=== PATIENT | male | born 1990 | race African-American/Black ===

== ENCOUNTER 2018-11-07 14:03 | Emergency (ER) | payer SELFPAY ==
[~2018-11-07] VITALS: Ht 190.5 cm; Wt 127.0 kg
[2018-11-07] MEDS ORDERED: IBUPROFEN 600 MG TABLET. PO ONE (14:30)
[2018-11-07] MEDS ORDERED: LIDOCAINE WITH 8.4% SOD BICARB 3 ML DISP.SYRIN. INJ ONE (14:30)
[2018-11-07 14:31] VITALS: BP 122/74
[2018-11-07] MEDS ORDERED: HYDR-3164 PO (14:51)
--- NOTE | 2018-11-07 14:51 | PHYS DOC ---
Past Medical History Past Medical History: No Pertinent History Past Surgical History: No Surgical History Alcohol Use: Occasionally Drug Use: None Adult General Chief Complaint Chief Complaint: LACERATION/AVULSION HPI HPI Patient is a 28 year old male who presents with left outer palm laceration that is for smears leave. Patient was clearly reviewed with a knife 1400 with incident happened. Review of Systems Review of Systems Constitutional: Denies fever or chills [] Eyes: Denies change in visual acuity, redness, or eye pain [] HENT: Denies nasal congestion or sore throat [] Respiratory: Denies cough or shortness of breath [] Cardiovascular: No additional information not addressed in HPI [] GI: Denies abdominal pain, nausea, vomiting, bloody stools or diarrhea [] : Denies dysuria or hematuria [] Musculoskeletal: Denies back pain or joint pain [] Integument: Denies rash or skin lesions [] Neurologic: Denies headache, focal weakness or sensory changes [] Endocrine: Denies polyuria or polydipsia [] All other systems were reviewed and found to be within normal limits, except as documented in this note. Current Medications Current Medications Current Medications Medications (Trade) Dose Ordered Sig/Shree Start Time Stop Time Status Last Admin Dose Admin Ibuprofen (Motrin) 600 mg 1X ONCE 11/07/18 14:30 11/07/18 14:31 DC 11/07/18 14:57 600 MG Lidocaine/Sodium Bicarbonate (Buffered Lidocaine 1%) 9 ml 1X ONCE 11/07/18 14:30 11/07/18 14:31 DC 11/07/18 14:57 9 ML Allergies Allergies Allergies Coded Allergies Type Severity Reaction Last Updated Verified No Known Drug Allergies 10/13/14 No Physical Exam Physical Exam Constitutional: Well developed, well nourished, no acute distress, non-toxic appearance. [] HENT: Normocephalic, atraumatic, bilateral external ears normal, oropharynx moist, no oral exudates, nose normal. [] Eyes: PERRLA, EOMI, conjunctiva normal, no discharge. [] Neck: Normal range of motion, no tenderness, supple, no stridor. [] Cardiovascular:Heart rate regular rhythm, no murmur [] Lungs & Thorax: Bilateral breath sounds clear to auscultation [] Abdomen: Bowel sounds normal, soft, no tenderness, no masses, no pulsatile masses. [] Skin: Warm, dry, no erythema, no rash. [] Back: No tenderness, no CVA tenderness. [] Extremities: No tenderness, no cyanosis, no clubbing, ROM intact, no edema. [] Neurologic: Alert and oriented X 3, normal motor function, normal sensory function, no focal deficits noted. [] Psychologic: Affect normal, judgement normal, mood normal. [] Current Patient Data Vital Signs Vital Signs Date Time Temp Pulse Resp B/P (MAP) Pulse Ox O2 Delivery O2 Flow Rate FiO2 11/07/18 14:31 98.6 82 16 122/74 (90) 98 Room Air 98.6 EKG EKG [] Radiology/Procedures Radiology/Procedures Left hand Impressions: [facility] [address] [place] [address] IMAGING REPORT Signed PATIENT: RADHA TITUS ACCOUNT: [id number] : 1990 LOCATION: ER AGE: 28 SEX: M EXAM STATUS: REG ER ORD. PHYSICIAN: MICKIE JAVED APRN REASON: LACERATION BY KNIFE PROCEDURE: HAND LEFT 3V Left hand radiograph 11/07/2018 11/07/2018 2:29 PM INDICATION: Laceration by knife to the medial left hand. COMPARISON: None available. TECHNIQUE: 3 views the left hand are provided. FINDINGS: There is no acute fracture or dislocation. Bone mineralization is within normal limits. Joint spaces are maintained. Soft tissue laceration is identified without radiopaque foreign density. There is no soft tissue gas or osseous erosion. IMPRESSION: No acute fracture or dislocation. Soft tissue laceration along the ulnar surface without radiopaque foreign density. Electronically signed by: Ken Braxton MD (11/07/2018 3:17 PM) [facility] DICTATED and SIGNED BY: KEN BRAXTON MD DATE: 11/07/18 1516 Course & Med Decision Making Course & Med Decision Making Patient is a 28 year old male who presents with left outer palm laceration that is for smears leave. Patient was clearly reviewed with a knife 1400 with incident happened. He states his last tetanus shot was in 2014. Patient has full strength and range of motion due to his significant. Radial pulses strong and present. Cap refill is less than 3 seconds. Alert and oriented. No foreign body seen with copious irrigation. Hand xray shows no acute findings. Patient return to the ED in 7 days for suture removal and sooner if any signs of infection. Patient ibuprofen or Tylenol for pain. Patient needs to keep the wound clean and dry and covered. Laceration Repair by me: Anesthesia: 1% lidocaine locally Location: Outer palm Tendon/Joint/Nerves: No injury Foreign body: None detected after copious irrigation and exploration Technique: 6 Simple Interrupted Sutures Complexity: No subcutaneous sutures/mucosal repair/edge excision Post Closure Length: 4 cm Patient's bleeding was easily controlled in the department and there is no indication of anemia. No evidence of compartment syndrome, neurologic injury, vascular injury, open joint, tendon laceration, or foreign body. Patient is appropriate for outpatient follow up. 48 hour wound check. Scar minimization instructions given. Dragon Disclaimer Dragon Disclaimer This electronic medical record was generated, in whole or in part, using a voice recognition dictation system. Departure Departure Impression: Primary Impression: Laceration Disposition: HOME, SELF-CARE Condition: STABLE Referrals: NO PCP (PCP) Patient Instructions: Laceration Care, Adult Additional Instructions: Return in 7 days for suture removal or sooner for any signs of infection. Take Tylenol or ibuprofen for pain. Scripts Hydrocodone/Apap 5-325 (NORCO 5-325 TABLET) 1 Each Tablet 1 TAB PO PRN Q6HRS PRN for PAIN, #5 TAB 0 Refills Prov: MICKIE JAVED APRN 11/07/18 Attending Signature Attending Signature I have reviewed the PA/MENTAL HEALTH PROFESSIONAL's note and plan of care. I was available for consultation as needed during the patient's visit in the emergency department. I agree with the clinical impression, plan, and disposition. MICKIE JAVED APRN Nov 07, 2018 14:51 MICHELET VITAL DO Nov 08, 2018 09:51
--- NOTE | 2018-11-07 15:21 | RAD ---
Left hand radiograph 11/07/2018 11/07/2018 2:29 PM INDICATION: Laceration by knife to the medial left hand. COMPARISON: None available. TECHNIQUE: 3 views the left hand are provided. FINDINGS: There is no acute fracture or dislocation. Bone mineralization is within normal limits. Joint spaces are maintained. Soft tissue laceration is identified without radiopaque foreign density. There is no soft tissue gas or osseous erosion. IMPRESSION: No acute fracture or dislocation. Soft tissue laceration along the ulnar surface without radiopaque foreign density. Electronically signed by: Laura Mustafa MD (11/07/2018 3:17 PM) [facility]
== END 2018-11-07 16:09 | disposition home or self-care (01) ==
LOC: ER 14:03
DX: S61.412A Laceration without foreign body of left hand, initial encounter (principal); W26.0XXA Contact with knife, initial encounter; Y93.89 Activity, other specified; Y92.89 Other specified places as the place of occurrence of the external cause; Y99.8 Other external cause status
CPT/HCPCS: 12002; 73130; 99283

== ENCOUNTER 2018-11-25 12:07 | Emergency (ER) | payer SELFPAY ==
[~2018-11-25] VITALS: Ht 190.5 cm; Wt 127.0 kg
[~2018-11-25 12:07] MED LIST: HYDR-3164 PO
[2018-11-25 12:30] VITALS: BP 133/83
[2018-11-25] MEDS ORDERED: predniSONE 10 MG TABLET PO ONE (13:15)
[2018-11-25] MEDS ORDERED: VALA10005 PO (13:19)
[2018-11-25] MEDS ORDERED: PRED50TA PO (13:19)
--- NOTE | 2018-11-25 13:19 | PHYS DOC ---
Past Medical History Past Medical History: No Pertinent History Past Surgical History: No Surgical History Alcohol Use: Occasionally Drug Use: None Adult General Chief Complaint Chief Complaint: SKIN RASH/ABSCESS HPI HPI 28 y/o male presents to ER for c/o rash and burning sensation on rt side lower back extending to rt side hip. Pt reports a few days ago he started having some tingling in rt lower back and then gradually pain increased- he noticed rash and pain has increased since at rash site. Pt denies injury/recent falls. Pt denies fever/chills or fatigue. Pt denies urinary sxs. Pt reports he has had increased stress w/personal things- denies depression/SI. Pt reports he has taken tylenol/ibuprofen with no relief in sxs. Pt denies previous rash similar to current one. He denies recent travel, new lotions/soaps, or others he's been around with rash. Pt reports he had chicken pox as a child. Review of Systems Review of Systems Constitutional: Denies fever or chills. Denies fatigue/weakness Eyes: Denies change in visual acuity, redness, or eye pain [] HENT: Denies nasal congestion or sore throat [] Respiratory: Denies cough or shortness of breath [] Cardiovascular: No additional information not addressed in HPI [] GI: Denies abdominal pain, nausea, vomiting, bloody stools or diarrhea [] : Denies dysuria or hematuria [] Musculoskeletal: Denies joint pain. Reports mid lower rt side back pain into rt hip area along present rash. Denies swelling or numbness/tingling Integument: Reports rash mid lower rt side back to rt hip- no other areas of rash. Denies abscess/lesions/drainage Neurologic: Denies headache, focal weakness or sensory changes [] All other systems were reviewed and found to be within normal limits, except as documented in this note. Current Medications Current Medications Current Medications Medications (Trade) Dose Ordered Sig/Shree Start Time Stop Time Status Last Admin Dose Admin Prednisone (Prednisone) 50 mg 1X ONCE 11/25/18 13:15 11/25/18 13:16 DC 11/25/18 13:23 50 MG Allergies Allergies Allergies Coded Allergies Type Severity Reaction Last Updated Verified No Known Drug Allergies 10/13/14 No Physical Exam Physical Exam Constitutional: Well developed, well nourished, no acute distress, non-toxic appearance. Steady gait HENT: Normocephalic, atraumatic, oropharynx moist, no oral exudates or pharyngeal swelling/erythema, nose normal. No facial swelling/rash Eyes: Pupils equal, conjunctiva normal, no discharge. [] Neck: Normal range of motion, no tenderness, supple, no stridor/gross adenopathy Cardiovascular: Heart rate regular rhythm, no murmur [] Lungs & Thorax: Bilateral breath sounds clear to auscultation. Resp. equal/ nonlabored Abdomen: Soft, no tenderness, no rash Skin: Warm, dry Back: Full ROM, no CVA tenderness. Rash lower mid back lateral rt side of spine extending in linear pattern to rt lateral hip- erythema patchy raised rash with few small blisters along rash track- no drainage- no puncture or sting sites- no abscess. Rash tender to touch. No other areas of rash on exam Extremities: No tenderness, no cyanosis, no clubbing, ROM intact, no edema. [] Neurologic: Alert and oriented X 3, normal motor function, normal sensory function, no focal deficits noted. [] Psychologic: Affect normal, judgement normal, mood normal. [] Current Patient Data Vital Signs Vital Signs Date Time Temp Pulse Resp B/P (MAP) Pulse Ox O2 Delivery O2 Flow Rate FiO2 11/25/18 12:30 98.4 70 16 133/83 (100) 100 Room Air 98.4 EKG EKG [] Radiology/Procedures Radiology/Procedures [] Course & Med Decision Making Course & Med Decision Making Pt was evaluated in the ER for c/o rash/burning sensation to rt side lower back into rt hip area- discussed with unilateral pattern of rash and burning type sensation at rash site along with recent increased stressors in life discussed shingles as probable cause- with education on shingles. Pt had concerns of insect bite- there was no site of puncture or obvious sting/bite where rash was located. Discussed tx plan with steroids and Valtrex- pt is agreeable with this plan. Will provide pt with community clinic/physician referral info for f/u purposes. Discussed OTC tylenol and/or ibuprofen PRN. Pt was provided with dose of Prednisone while in the ER. Education was provided on s&s to return to ER for and discharge instructions were discussed. Dragon Disclaimer Dragon Disclaimer This electronic medical record was generated, in whole or in part, using a voice recognition dictation system. Departure Departure Impression: Primary Impression: Shingles Disposition: HOME, SELF-CARE Condition: STABLE Referrals: NO PCP (PCP) Patient Instructions: Shingles Additional Instructions: You are being treated for probable shingles- take prescriptions as prescribed. Follow-up with primary doctor for re-evaluation and further care as needed. Tylenol and/or Ibuprofen as directed on container for pain as directed on container. Scripts Valacyclovir Hcl (VALTREX) 1,000 Mg Tablet 1 TAB PO TID, #21 TAB 0 Refills Prov: SERGIO ROBERTSON APRN 11/25/18 Prednisone (PREDNISONE) 50 Mg Tablet 1 TAB PO DAILY, #5 TAB 0 Refills Start 11/26/18 Prov: SERGIO ROBERTSON APRN 11/25/18 SERGIO ROBERTSON APRN Nov 25, 2018 13:19
== END 2018-11-25 13:26 | disposition home or self-care (01) ==
LOC: ER 12:07
DX: B02.9 Zoster without complications (principal); R20.2 Paresthesia of skin
CPT/HCPCS: 99283; J7512

== ENCOUNTER 2018-12-17 23:44 | Emergency (ER) | payer SELFPAY ==
[~2018-12-17] VITALS: Ht 190.5 cm; Wt 113.4 kg
[~2018-12-17 23:44] MED LIST changes: +PRED50TA PO; +VALA10005 PO
[2018-12-17 23:58] VITALS: BP 160/101
[2018-12-18] MEDS ORDERED: DICL50TA4 PO (00:08)
[2018-12-18] MEDS ORDERED: AMOX500C PO (00:08)
[2018-12-18] MEDS ORDERED: HYDR-3164 PO (00:08)
--- NOTE | 2018-12-18 00:08 | PHYS DOC ---
Past Medical History Past Medical History: No Pertinent History Past Surgical History: No Surgical History Alcohol Use: Occasionally Drug Use: None Adult General Chief Complaint Chief Complaint: DENTAL PROBLEM HPI HPI Patient is a 28 year old male with no significant medical history who presents to the ED today complaining of mild to moderate throbbing and intermittent left upper gum dental pain that has been going on for days and got worse yesterday. She denies any fever or trismus. He states he has been taking ibuprofen with slight relief for 1-1/2 hours then the pain returns. He states he plans to follow-up with the dentist. Review of Systems Review of Systems Constitutional: Denies fever or chills [] HENT: Reports left upper gum dental pain. Musculoskeletal: Denies back pain or joint pain [] Integument: Denies rash or skin lesions [] Neurologic: Denies headache, focal weakness or sensory changes [] All other systems were reviewed and found to be within normal limits, except as documented in this note. Allergies Allergies Allergies Coded Allergies Type Severity Reaction Last Updated Verified No Known Drug Allergies 10/13/14 No Physical Exam Physical Exam Constitutional: Well developed, well nourished, no acute distress, non-toxic appearance. [] HENT: Normocephalic, atraumatic, bilateral external ears normal, oropharynx moist, no oral exudates, nose normal. [] Left upper cheek is swollen, tooth #15 is broken, there is scattered dental caries throughout. There is slight gum erythema around tooth #1516 and 17 as well as 14. There is no fluctuance to the left upper gums or cheek Skin: Warm, dry, no erythema, no rash. [] Back: No tenderness, no CVA tenderness. [] Extremities: No tenderness, no cyanosis, no clubbing, ROM intact, no edema. [] Neurologic: Alert and oriented X 3, normal motor function, normal sensory function, no focal deficits noted. [] EKG EKG [] Radiology/Procedures Radiology/Procedures [] Course & Med Decision Making Course & Med Decision Making Pertinent Labs and Imaging studies reviewed. (See chart for details) This is a 11-year-old male patient presenting to the ED today with a dental abscess. Discharged with amoxicillin. Follow-up with her dentist in 1-2 weeks. Dragon Disclaimer Dragon Disclaimer This electronic medical record was generated, in whole or in part, using a voice recognition dictation system. Departure Departure Impression: Primary Impression: Abscess, dental Disposition: 01 HOME, SELF-CARE Condition: STABLE Referrals: NO PCP (PCP) Follow-up with your dentist in the next 1-2 weeks Patient Instructions: Dental Abscess Additional Instructions: You were evaluated in the emergency room for dental abscess take the prescribed antibiotics until completed. Follow-up with your dentist in the next 1-2 weeks. Scripts Diclofenac Sodium (DICLOFENAC SODIUM) 50 Mg Tablet.dr 1 TAB PO BID, #20 TAB 0 Refills Prov: APRIL TALAMANTES APRN 12/18/18 Hydrocodone/Apap 5-325 (NORCO 5-325 TABLET) 1 Each Tablet 4 TAB PO Q8HRS, #10 TAB Prov: APRIL TALAMANTES APRN 12/18/18 Amoxicillin (AMOXICILLIN) 500 Mg Capsule 1 CAP PO BID, #20 CAP Prov: APRIL TALAMANTES APRN 12/18/18 APRIL TALAMANTES APRN Dec 18, 2018 00:08
== END 2018-12-18 00:14 | disposition home or self-care (01) ==
LOC: ER 12-18 00:09
DX: K04.7 Periapical abscess without sinus (principal); K02.9 Dental caries, unspecified
CPT/HCPCS: 99283

== ENCOUNTER 2019-03-01 12:20 | Emergency (ER) | payer SELFPAY ==
[~2019-03-01] VITALS: Ht 190.5 cm; Wt 108.9 kg
[~2019-03-01 12:20] MED LIST changes: +AMOX500C PO; +DICL50TA4 PO
--- NOTE | 2019-03-01 13:20 | PHYS DOC ---
Past Medical History Past Medical History: No Pertinent History (APRIL TALAMANTES APRN) Past Surgical History: No Surgical History (APRIL TALAMANTES APRN) Additional Information: 1 TO 2 CIGARETTES A DAY Alcohol Use: Occasionally Drug Use: None (APRIL TALAMANTES APRN) Adult General Chief Complaint Chief Complaint: SORE THROAT HPI HPI Patient is a 28 year old patient presents with sore throat for 2 days. He Is also complaining of subjective fevers. Currently tolerating secretions though he states it is painful when he swallows. (APRIL TALAMANTES APRN) Review of Systems Review of Systems Constitutional: Denies fever or chills [] Eyes: Denies change in visual acuity, redness, or eye pain [] HENT: Reports sore throat. Denies nasal congestion Respiratory: Denies cough or shortness of breath [] Cardiovascular: No additional information not addressed in HPI [] GI: Denies abdominal pain, nausea, vomiting, bloody stools or diarrhea [] : Denies dysuria or hematuria [] Musculoskeletal: Denies back pain or joint pain [] Integument: Denies rash or skin lesions [] Neurologic: Denies headache, focal weakness or sensory changes [] All other systems were reviewed and found to be within normal limits, except as documented in this note. (APRIL TALAMANTES APRN) Current Medications Current Medications Current Medications Medications (Trade) Dose Ordered Sig/Shree Start Time Stop Time Status Last Admin Dose Admin Acetaminophen/ Hydrocodone Bitart (Lortab 7.5-325/ 15ml Oral Solution) 15 ml 1X ONCE 03/01/19 13:30 03/01/19 13:31 DC 03/01/19 13:18 15 ML Amoxicillin (Amoxil) 500 mg 1X ONCE 03/01/19 13:30 03/01/19 13:31 DC 03/01/19 13:18 500 MG Ibuprofen (Children'S Motrin) 400 mg 1X ONCE 03/01/19 13:30 03/01/19 13:31 DC 03/01/19 13:18 400 MG Lidocaine HCl (Viscous Lidocaine) 15 ml 1X ONCE 03/01/19 13:30 03/01/19 13:31 DC 03/01/19 13:18 15 ML (MICHELET VITAL DO) Allergies Allergies Allergies Coded Allergies Type Severity Reaction Last Updated Verified No Known Drug Allergies 10/13/14 No (MICHELET VITAL DO) Physical Exam Physical Exam Constitutional: Well developed, well nourished, no acute distress, non-toxic appearance. [] HENT: Normocephalic, atraumatic, bilateral external ears normal, oropharynx moist, no oral exudates, nose normal. [] +3 tonsils, midline uvula. +2 anterior cervical adenopathy. Exudate bilaterally to posterior pharynx Eyes: PERRLA, EOMI, conjunctiva normal, no discharge. [] Neck: Normal range of motion, no tenderness, supple, no stridor. [] Cardiovascular:Heart rate regular rhythm, no murmur [] Lungs & Thorax: Bilateral breath sounds clear to auscultation [] Abdomen: Bowel sounds normal, soft, no tenderness, no masses, no pulsatile masses. [] Skin: Warm, dry, no erythema, no rash. [] Back: No tenderness, no CVA tenderness. [] Extremities: No tenderness, no cyanosis, no clubbing, ROM intact, no edema. [] Neurologic: Alert and oriented X 3, normal motor function, normal sensory function, no focal deficits noted. [] Psychologic: Affect normal, judgement normal, mood normal. [] (APRIL TALAMANTES APRN) Current Patient Data Vital Signs Vital Signs Date Time Temp Pulse Resp B/P (MAP) Pulse Ox O2 Delivery O2 Flow Rate FiO2 03/01/19 13:33 102 18 132/84 (100) 99 Room Air 03/01/19 12:28 99.7 99.7 (MICHELET VITAL DO) Lab Values Laboratory Tests Test 03/01/19 12:35 Group A Streptococcus Rapid Positive (NEGATIVE) (MICHELET VITAL DO) EKG EKG [] (APRIL TALAMANTES APRN) Radiology/Procedures Radiology/Procedures [] (APRIL TALAMANTES APRN) Course & Med Decision Making Course & Med Decision Making Pertinent Labs and Imaging studies reviewed. (See chart for details) This is a 28-year-old male patient presenting to the ED today with sore throat for 2 days. Positive rapid strep. Discharged on amoxicillin. Tylenol/Motrin as needed for pain or fever. Also given prednisone for home use, saltwater gargles. Follow-up with ENT in one week or primary care doctor. (APRIL TALAMANTES APRN) Dragon Disclaimer Dragon Disclaimer This electronic medical record was generated, in whole or in part, using a voice recognition dictation system. (APRIL TALAMANTES APRN) Departure Departure Impression: Primary Impression: Acute streptococcal pharyngitis Additional Impression: Fever Disposition: HOME, SELF-CARE Condition: STABLE Referrals: NO PCP (PCP) NEVILLE PERSAUD MD follow up in 1 week Patient Instructions: Fever, Adult, Strep Infections Additional Instructions: You were evaluated in the emergency room, your strep test is positive. Please take the prescribed antibiotics until completed. Take Tylenol/Motrin as needed for fever. Follow-up with your doctor in 1-2 weeks. Scripts Hydrocodone Bit/Acetaminophen (HYDROCODONE-APAP 7.5-325/15 SOLN ) 15 Ml Solution 15 ML PO PRN Q6HRS PRN for PAIN, #50 ML 0 Refills Prov: APRIL TALAMANTES APRN 03/01/19 Prednisone (PREDNISONE) 50 Mg Tablet 1 TAB PO DAILY, #5 TAB Prov: APRIL TALAMANTES APRN 03/01/19 Amoxicillin (AMOXICILLIN) 875 Mg Tablet 1 TAB PO BID, #20 TAB Prov: APRIL TALAMANTES APRN 03/01/19 Attending Signature Attending Signature I have reviewed the PA/EMERGENCY MANAGEMENT COORDINATOR's note and plan of care. I was available for consultation as needed during the patient's visit in the emergency department. I agree with the clinical impression, plan, and disposition. (MICHELET VITAL DO) Problem Qualifiers Additional Impression: Fever Fever type: unspecified Qualified Codes: R50.9 - Fever, unspecified APRIL TALAMANTES APRN March 01, 2019 13:20 MICHELET VITAL DO March 02, 2019 12:22
[2019-03-01] MEDS ORDERED: AMOX875T PO (13:25)
[2019-03-01] MEDS ORDERED: PRED50TA PO (13:25)
[2019-03-01] MEDS ORDERED: HYDR15SO6 PO (13:25)
[2019-03-01] MEDS ORDERED: IBUPROFEN 100 MG/5 ML ORAL.SUSP. PO ONE (13:30)
[2019-03-01] MEDS ORDERED: AMOXICILLIN 250 MG CAPSULE. PO ONE (13:30)
[2019-03-01] MEDS ORDERED: LIDOCAINE 2% VISCOUS 15 ML SOLUTION. SWSW ONE (13:30)
[2019-03-01] MEDS ORDERED: HYDROcodon/APAP 7.5/325MG ORAL 15 ML SOLUTION PO ONE (13:30)
[2019-03-01 13:33] VITALS: BP 132/84
== END 2019-03-01 13:33 | disposition home or self-care (01) ==
LOC: ER 12:20
DX: J02.0 Streptococcal pharyngitis (principal); B95.5 Unspecified streptococcus as the cause of diseases classified elsewhere; R50.9 Fever, unspecified; F17.210 Nicotine dependence, cigarettes, uncomplicated
CPT/HCPCS: 87880; 99283

== ENCOUNTER 2020-04-22 12:56 | Emergency (ER) | payer BC ==
[~2020-04-22] VITALS: Ht 190.5 cm; Wt 109.0 kg
[~2020-04-22 12:56] MED LIST changes: +AMOX875T PO; +HYDR15SO6 PO
[2020-04-22 13:35] VITALS: BP 153/83
--- NOTE | 2020-04-22 13:45 | PHYS DOC ---
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 He states now it is bothering him at work and when he is having to carry large heavy items. He states he finds that it is more comfortable to lean his head to the right of which is straining his neck and causing him headaches. Denies any pain at this time. He would like a referral to have it removed. Denies dizziness, syncope, headache at this time, vision changes, numbness or tingling, fever, cough, chest pain, shortness of air. Review of Systems: Review of Systems: Constitutional: Denies fever or chills. [] Eyes: Denies change in visual acuity. [] HENT: Denies nasal congestion or sore throat. [] Respiratory: Denies cough or shortness of breath. [] Cardiovascular: Denies chest pain or edema. [] GI: Denies abdominal pain, nausea, vomiting, bloody stools or diarrhea. [] : Denies dysuria. [] Musculoskeletal: Denies back pain or joint pain. Left neck strain. [] Integument: Lipoma to the left back of neck. Denies rash. [] Neurologic: Intermittent headache, denies focal weakness or sensory changes. [] Endocrine: Denies polyuria or polydipsia. [] Lymphatic: Denies swollen glands. [] Psychiatric: Denies depression or anxiety. [] Heart Score: Risk Factors: Risk Factors: DM, Current or recent (<one month) smoker, HTN, HLP, family history of CAD, obesity. Risk Scores: Score 0 - 3: 2.5% MACE over next 6 weeks - Discharge Home Score 4 - 6: 20.3% MACE over next 6 weeks - Admit for Clinical Observation Score 7 - 10: 72.7% MACE over next 6 weeks - Early Invasive Strategies Allergies: Allergies: Allergies Coded Allergies Type Severity Reaction Last Updated Verified No Known Drug Allergies 10/13/14 No Physical Exam: PE: Constitutional: Well developed, well nourished, no acute distress, non-toxic appearance. [] HENT: Normocephalic, atraumatic, bilateral external ears normal, oropharynx moist, no oral exudates, nose normal. [] Eyes: PERRLA, EOMI, conjunctiva normal, no discharge. [] Neck: Normal range of motion, no tenderness, supple, no stridor. [] Cardiovascular:Heart rate regular rhythm, no murmur [] Lungs & Thorax: Bilateral breath sounds clear to auscultation [] Abdomen: Bowel sounds normal, soft, no tenderness, no masses, no pulsatile masses. [] Skin: Warm, dry, no erythema, no rash. [] Back: No tenderness, no CVA tenderness. [] Extremities: No tenderness, no cyanosis, no clubbing, ROM intact, no edema. [] Neurologic: Alert and oriented X 3, normal motor function, normal sensory function, no focal deficits noted. [] Psychologic: Affect normal, judgement normal, mood normal. [] EKG: EKG: [] Radiology/Procedures: Radiology/Procedures: [] Course & Med Decision Making: Course & Med Decision Making Pertinent Labs and Imaging studies reviewed. (See chart for details) Patient has a large golf ball sized lipoma to the back of his neck that is soft and skin colored. No tenderness is noted. No redness or associated cellulitis or wound. No drainage. Patient does have full range of motion of the neck it is just getting more painful and he feels pressure on that lipoma when he has to lean his head backward. Patient denies any trouble breathing. Throat is pink and no swelling and no exudates. Uvula midline. No trismus. Speaks in full complete sentences. Ambulatory with a steady gait. Alert and oriented. Patient will be referred to a general surgeon. [] Dragon Disclaimer: Dragon Disclaimer: This electronic medical record was generated, in whole or in part, using a voice recognition dictation system. Departure Departure Impression: Primary Impression: Lipoma Qualified Codes: D17.79 - Benign lipomatous neoplasm of other sites Disposition: HOME, SELF-CARE Condition: STABLE Referrals: NO PCP (PCP) GWEN STEWART MD Patient Instructions: Lipoma Additional Instructions: Follow-up with the surgeons I have referred you to. Take Tylenol ibuprofen for pain. Justicifation of Admission Dx: Justifications for Admission: Justification of Admission Dx: N/A MICKIE JAVED APRN Apr 22, 2020 13:44
== END 2020-04-22 14:10 | disposition home or self-care (01) ==
LOC: ER 12:56
DX: D17.79 Benign lipomatous neoplasm of other sites (principal); R51 Headache; F17.200 Nicotine dependence, unspecified, uncomplicated
CPT/HCPCS: 99282